=== PATIENT | female | born 1940 | race Caucasian/White ===

== ENCOUNTER 2020-05-14 13:44 | Outpatient (REF) | payer MEDICARE, MEDICAID, OTHER, SELFPAY | END 2020-05-14 13:45 | disposition home or self-care (01) | LOC: HO.HMGCLDS 13:44 | PROVIDERS: PCP Family Medicine; Visit Provider Internal Medicine | DX: Z20.822 Contact with and (suspected) exposure to COVID-19 (principal) | CPT/HCPCS: 36415; C9803; U0003 ==

== ENCOUNTER 2020-07-21 09:56 | Outpatient (REF) | payer MEDICARE, MEDICAID, OTHER, SELFPAY ==
[2020-07-21 11:11] LABS: MANUAL DIFF FLAG NO
[2020-07-21 11:27] LABS: Basophils Percent Auto 0.3 % (0-2); Eosinophils Absolute Auto 0.1 X10*3/uL (0.0-0.4); Eosinophils Percent Auto 2.1 % (0-4); Hematocrit 47.3 % (37-47); Imm Gran Abs Auto 0.03 X10*3/uL (0.00-0.03); Imm Gran Pct Auto 0.5 % (0.0-0.4); Lymphocytes Absolute Auto 1.7 X10*3/uL (1.2-4.9); Lymphocytes Percent Auto 27.3 % (20-40); Mean Corpuscular HGB Conc 31.7 g/dl (31.0-35.0); Mean Corpuscular Hemoglobin 27.5 pg (27.0-33.0); Mean Corpuscular Volume 86.8 fL (80-98); Mean Platelet Volume 9.8 fL (9.4-12.3); Monocytes Absolute Auto 0.5 X10*3/uL (0.1-1.2); Monocytes Percent Auto 7.1 % (2-11); Neutrophils Percent Auto 62.7 % (45-73); Platelet Count 218 X10*3/uL (160-400); Red Blood Count 5.45 X10*6/uL (4.20-5.50); Red Cell Distribution Width 13.8 % (11.0-16.0); White Blood Count 6.3 X10*3/uL (4.8-10.8)
[2020-07-21 12:06] LABS: Alanine Aminotransferase 16 U/L (0-31); Albumin Level 4.2 g/dL (3.5-5.0); Alkaline Phosphatase 91 U/L (39-117); Anion Gap 16 (12-20); Aspartate Amino Transferase 19 U/L (5-31); Bilirubin Total 0.5 mg/dL (0.0-1.0); Blood Urea Nitrogen 16 mg/dL (9-16); Calcium 9.1 mg/dL (8.4-10.2); Carbon Dioxide 29 mmol/L (22-29); Chloride 103 mmol/L (96-108); Estimated Glomerular Filt Rate 53; Glucose Fasting 88 mg/dL (60-99); Sodium 143 mmol/L (135-145); Total Protein 6.6 g/dL (6.5-8.0)
== END 2020-07-21 09:57 | disposition home or self-care (01) ==
LOC: HO.HMGCLDS 09:56
PROVIDERS: PCP Family Medicine; Visit Provider Family Medicine
DX: R53.83 Other fatigue (principal); E03.9 Hypothyroidism, unspecified
CPT/HCPCS: 36415; 80053; 84439; 85025

== ENCOUNTER → 2020-11-29 09:57 | Outpatient (REF) | payer MEDICARE, MEDICAID, OTHER, SELFPAY ==
--- NOTE | 2020-11-29 10:04 | HM_ITS ---
Underlying rhythm is sinus with an average rate of 66/Min. Minimum 46/Min. Maximum 109/Min. Most rates are between 60-100/Min. No evidence of atrial fibrillation or flutter. No AV block. Rare supraventricular ectopy. Longest run 10 beats. [place] 0.09%. Rare ventricular ectopy. [place] 0.12%. Unifocal. No patient events noted. Total monitoring duration 7 days, 4 hours and 1 minutes. MTDD
== END ==
LOC: HO.CARD 09:57
PROVIDERS: PCP Family Medicine; Visit Provider Family Medicine
DX: R00.2 Palpitations (principal)
CPT/HCPCS: 93242

== ENCOUNTER 2021-03-21 10:55 | Outpatient (REF) | payer MEDICARE, OTHER, SELFPAY ==
[2021-03-21 14:41] LABS: Free T4 (Free Thyroxine) 0.78 ng/dL (0.71-1.85); Thyroid Stimulating Hormone 3.43 uIU/mL (0.32-4.0)
[2021-03-21 14:43] LABS: Alanine Aminotransferase 17 U/L (0-31); Aspartate Amino Transferase 18 U/L (5-31)
== END 2021-03-21 10:56 | disposition home or self-care (01) ==
LOC: HO.HMGCLDS 10:55
PROVIDERS: Visit Provider Family Medicine
DX: E78.00 Pure hypercholesterolemia, unspecified (principal); E03.9 Hypothyroidism, unspecified; Z79.899 Other long term (current) drug therapy
CPT/HCPCS: 36415; 82550; 84439; 84443; 84450; 84460

== ENCOUNTER → 2021-03-30 10:16 | Outpatient (REF) | payer MEDICARE, OTHER, SELFPAY ==
--- NOTE | 2021-03-30 10:30 | CA_ITS ---
Transthoracic Echocardiogram Patient (Last, First, Middle): Tiffany Schultz A Gender: Female Date of : 1940 Age: 80 Procedure Date: 03/30/2021 Procedure Type: Transthoracic Echocardiogram Location: OP Height: 154.94 cm Weight: 74.84 kg BSA: 1.74 m2 Heart Rate: bpm BP: 120 / 80 mmHg Adjuster: YR/CP Referring MD: Thomas Ibraihm MD Symptoms: R01.1 CARDIAC MURMUR Study Quality: Fair ECG Rhythm: Sinus Conclusions: - The left ventricular systolic function is normal. The calculated ejection fraction is 65% by biplane method. - There is mild aortic valve stenosis. Cannot exclude bicuspid morphology. Findings Left Ventricle Normal left ventricular cavity size. There is normal left ventricular wall thickness. The left ventricular systolic function is normal. The calculated ejection fraction is 65% by biplane method. There is no evidence of regional wall motion abnormalities. Diastolic function is normal for age. Right Ventricle Normal right ventricular cavity size and systolic function. Atria Both atria are normal in size. Aortic Valve There is mild calcification of the aortic valve. There is mild aortic valve stenosis. The peak aortic velocity is 1.96 m/s with a calculated peak gradient of 15 mmHg. The mean gradient is 8 mmHg. The aortic valve area is 1.67 cm2. There is trace (trivial) aortic valve regurgitation. Dimensionless index 0.49. Cannot exclude bicuspid morphology. Mitral Valve The mitral valve appears normal. There is trace mitral valve regurgitation. There is no mitral valve stenosis. Pulmonic Valve The pulmonic valve was not well visualized. Tricuspid Valve Normal tricuspid valve structure. There is mild tricuspid valve regurgitation. The pulmonary artery systolic pressure is normal. Great Vessels The asc aorta is normal in size. Venous The inferior vena cava is normal in size and collapses greater than 50% with inspiration. Pericardium/Pleural There is no evidence of pericardial effusion. Prior Study Comparison No prior study available for comparison. Measurements 2D Linear Measurements IVSd: 0.82 0.6-0.9/0.6-1.0 cm LVIDd: 4.15 3.9-5.3/4.2-5.9 cm LVIDd Index: 2.39 2.4-3.2/2.2-3.1 cm/m2 LVIDs: 3.10 2.0-3.6 cm LVPWd: 0.89 0.7-1.1 cm Ao Root: 3.20 2.1-3.5 cm LA Diam: 3.20 2.7-3.8/3.0-4.0 cm LAIDs Index: 1.84 1.5-2.3 cm/m2 LV Mass: 135.05 67-162/88-224 g LV Mass Index: 77.62 43-95/49-115 g/m2 LVOT Diam: 1.90 3.0+(-)1.3 cm 2D Systolic Function EF 4C: 62.30 >55% EF 2C: 65.80 >55% EF BiP: 65.30 >55% Mitral Valve MV Pk E: 0.64 MV PK A: 0.83 MV Decel Time: 310.00 E/A: 0.80 E'Lateral: 7.51 E'Medial: 5.22 E/E' Med: 12.30 E/E' Lat: 8.60 PHT: 91.00 MVA PHT: 2.42 Decel [place]: 2.07 Aortic Valve AoV Pk Alfie: 1.96 AoV Mn Alfie: 1.28 AoV VTI: 0.43 AoV Pk Grad: 15.00 Aov Mn Grad: 8.00 IVANA Cont.VTI: 1.67 LVOT LVOT Pk Alfie: 0.95 LVOT Mn Alfie: 0.62 LVOT VTI: 0.25 LVOT Pk Grad: 4.00 LVOT Mn Grad: 2.00 LVOT Diam: 1.90 LVOT Area: 2.84 Diastolic Function MV Pk E: 0.64 MV Pk A: 0.83 E/A: 0.80 E'Medial: 5.22 E/E' Med: 12.30 E' Laterial: 7.51 E/E' Lat: 8.60 Right Ventricle TAPSE (mm): 1.81 TVS' Alfie: 10.10 Tricuspid Valve TR Pk Alfie: 2.16 TR Pk Grad: 19.00 RA Press: 3.00 RVSP: 22.00 Great Vessels Aorta Ao Root-2D: 3.20 2.0-3.7 cm Ao Asc: 3.10 2.1-3.4 cm Ao Arch: 2.30 Updated in Other Vendor System with Status of Final Thad Galvan MD electronically signed on 03/31/2021 11:19:41 AM with status of Final
== END ==
LOC: HO.CARD 10:16
PROVIDERS: Visit Provider Family Medicine
DX: R01.1 Cardiac murmur, unspecified (principal)
CPT/HCPCS: 93306

== ENCOUNTER → 2021-07-26 15:00 | Outpatient (REF) | payer MEDICARE, OTHER, SELFPAY ==
--- NOTE | 2021-07-26 15:09 | ECG_ITS ---
Test Reason : PALPITATIONS Blood Pressure : / mmHG Vent. Rate : 058 BPM Atrial Rate : 058 BPM P-R Int : 146 ms QRS Dur : 066 ms QT Int : 392 ms P-R-T Axes : 042 007 077 degrees QTc Int : 384 ms Sinus bradycardia Nonspecific T wave abnormality Abnormal ECG When compared with ECG of 01-MAY-2014 22:30, No significant change was found Referred By: Thomas Ibrahim Electronically Signed By:STAS CANCINO
== END ==
LOC: HO.CARD 15:00
PROVIDERS: PCP Family Medicine; Visit Provider Family Medicine
DX: R00.2 Palpitations (principal)
CPT/HCPCS: 93005

== ENCOUNTER 2021-09-02 12:25 | Outpatient (REF) | payer MEDICARE, MEDICAID, SELFPAY ==
[2021-09-02 14:01] LABS: Anion Gap 14 (12-20); Aspartate Amino Transferase 20 U/L (5-31); Blood Urea Nitrogen 18 mg/dL (9-16); Carbon Dioxide 29 mmol/L (22-29); Chloride 104 mmol/L (96-108); Estimated Glomerular Filt Rate 55; Potassium 4.5 mmol/L (3.3-5.1); Sodium 142 mmol/L (135-145)
[2021-09-02 14:24] LABS: Free T4 (Free Thyroxine) 0.83 ng/dL (0.71-1.85)
== END 2021-09-02 12:26 | disposition home or self-care (01) ==
LOC: HO.HMGCLDS 12:25
PROVIDERS: Visit Provider Family Medicine
DX: E03.9 Hypothyroidism, unspecified (principal); I10 Essential (primary) hypertension; E78.00 Pure hypercholesterolemia, unspecified; Z79.899 Other long term (current) drug therapy
CPT/HCPCS: 36415; 80051; 82565; 84439; 84450; 84520

== ENCOUNTER 2022-04-06 12:02 | Outpatient (REF) | payer MEDICARE, MEDICAID, SELFPAY ==
[2022-04-06 17:11] LABS: Alanine Aminotransferase 17 U/L (0-31); Aspartate Amino Transferase 17 U/L (5-31); Estimated Glomerular Filt Rate 59; Free T4 (Free Thyroxine) 0.86 ng/dL (0.71-1.85)
== END 2022-04-06 12:03 | disposition home or self-care (01) ==
LOC: HO.HMGCLDS 12:02
PROVIDERS: PCP Family Medicine; Visit Provider Family Medicine
DX: E03.9 Hypothyroidism, unspecified (principal); E78.00 Pure hypercholesterolemia, unspecified; Z79.899 Other long term (current) drug therapy
CPT/HCPCS: 36415; 82550; 82565; 84439; 84450; 84460

== ENCOUNTER 2022-04-19 11:58 | Outpatient (REF) | payer MEDICARE, MEDICAID, SELFPAY ==
--- NOTE | ~2022-04-19 | MM_ITS ---
EXAMINATION: MM SCREENING DIGITAL BREAST TOMOSYNTHESIS, BILATERAL CLINICAL INFORMATION: Screening. Asymptomatic. COMPARISON: Mammography: 03/13/2019, 05/14/2015, 03/12/2014 TECHNIQUE: Digital breast tomosynthesis is performed in both the craniocaudal and mediolateral oblique views along with computer-aided detection (CAD). Synthesized 2D images are generated from the tomosynthesis. FINDINGS: There are scattered areas of fibroglandular density (ACR BI-RADS breast composition Category b). There are no significant masses, abnormal calcifications, or other abnormalities. Breast tissue composition borders on predominantly fatty. Background stromal and fibroglandular densities are similar to prior studies and there is no developing density or architectural abnormality. The axilla and skin contours are unremarkable. MM/MM tomosynthesis screening BI IMPRESSION: No mammographic evidence of malignancy. ASSESSMENT: BI-RADS 1: Negative RECOMMENDATION: Routine annual mammography screening. This patient's information was entered into a reminder system with a target due date for their next mammogram.
== END 2022-04-19 11:59 | disposition home or self-care (01) ==
LOC: HO.MAMMO 11:58
PROVIDERS: PCP Family Medicine; Visit Provider Family Medicine
DX: Z12.31 Encounter for screening mammogram for malignant neoplasm of breast (principal)
CPT/HCPCS: 77063; 77067

== ENCOUNTER 2022-06-21 11:46 | Outpatient (REF) | payer MEDICARE, MEDICAID, SELFPAY ==
[2022-06-21 14:25] LABS: Appearance Urine Cloudy; Color Urine Yellow; Glucose Urine UA Negative (Negative); Leukocyte Esterase Urine Moderate (2+) (Negative); Nitrite Urine Negative (Negative); PH 5.5 (5.0-9.0); UMIC TRIGGER UACC YES; Urine Blood Negative (Negative); Urine Ketones Negative (Negative); Urine Protein Negative (Neg-Trace)
[2022-06-21 14:28] LABS: Bacteria Urine 2+ (None Seen); Hyaline Casts Urine 0-2 /LPF (0-2); RBC Urine 0-2 /HPF (0-2); UACC Culture Trigger YES
[2022-06-21 14:38] LABS: MANUAL DIFF FLAG NO
[2022-06-21 14:50] LABS: Basophils Percent Auto 0.4 % (0-2); Eosinophils Absolute Auto 0.2 X10*3/uL (0.0-0.4); Eosinophils Percent Auto 3.5 % (0-4); Hematocrit 43.7 % (37.0-47.0); Imm Gran Abs Auto 0.02 X10*3/uL (0.00-0.03); Imm Gran Pct Auto 0.4 % (0.0-0.4); Lymphocytes Absolute Auto 1.3 X10*3/uL (1.2-4.9); Lymphocytes Percent Auto 24.4 % (20-40); Mean Corpuscular Hemoglobin 28.2 pg (27.0-33.0); Mean Corpuscular Volume 87.9 fL (80.0-98.0); Mean Platelet Volume 10.3 fL (9.4-12.3); Monocytes Absolute Auto 0.4 X10*3/uL (0.1-1.2); Monocytes Percent Auto 6.8 % (2-11); Neutrophils Absolute Auto 3.5 x10*3/uL (2.0-8.3); Neutrophils Percent Auto 64.5 % (45-73); Platelet Count 191 X10*3/uL (160-400); Red Blood Count 4.97 X10*6/uL (4.20-5.50); Red Cell Distribution Width 13.4 % (11.0-16.0); White Blood Count 5.5 X10*3/uL (4.8-10.8)
[2022-06-21 15:15] LABS: Alanine Aminotransferase 15 U/L (0-31); Albumin Level 3.9 g/dL (3.5-5.0); Alkaline Phosphatase 80 U/L (39-117); Anion Gap 10 (12-20); Aspartate Amino Transferase 16 U/L (5-31); Bilirubin Total 0.5 mg/dL (0.0-1.0); Blood Urea Nitrogen 15 mg/dL (9-16); Calcium 8.9 mg/dL (8.4-10.2); Carbon Dioxide 32 mmol/L (22-29); Chloride 108 mmol/L (96-108); Estimated Glomerular Filt Rate 59; Glucose Random 87 mg/dL (60-115); Potassium 4.8 mmol/L (3.3-5.1); Sodium 145 mmol/L (135-145); Total Protein 6.1 g/dL (6.5-8.0)
[2022-06-21 15:29] LABS: Erythrocyte Sedimentation Rate 3 MM/HR (0-20)
== END 2022-06-21 11:47 | disposition home or self-care (01) ==
LOC: HO.HMGCLDS 11:46
PROVIDERS: PCP Family Medicine; Visit Provider Family Medicine
DX: R30.0 Dysuria (principal); R53.1 Weakness
CPT/HCPCS: 36415; 80053; 81001; 85025; 85652; 87086

== ENCOUNTER 2022-12-27 10:26 | Outpatient (REF) | payer MEDICARE, MEDICAID, SELFPAY ==
[2022-12-27 14:29] LABS: Alanine Aminotransferase 17 U/L (0-31); Albumin Level 3.9 g/dL (3.5-5.0); Alkaline Phosphatase 70 U/L (39-117); Anion Gap 9 (12-20); Aspartate Amino Transferase 17 U/L (5-31); Bilirubin Total 0.5 mg/dL (0.0-1.0); Blood Urea Nitrogen 13 mg/dL (9-16); Calcium 9.4 mg/dL (8.4-10.2); Carbon Dioxide 31 mmol/L (22-29); Chloride 108 mmol/L (96-108); Cholesterol 184 mg/dL (<200); Estimated Glomerular Filt Rate > 60; Glucose Fasting 79 mg/dL (60-99); HDL Cholesterol 46 mg/dL (>40); LDL Cholesterol Calculated 106 mg/dL (<100); Potassium 4.3 mmol/L (3.3-5.1); Sodium 144 mmol/L (135-145); Total Protein 6.3 g/dL (6.5-8.0); Triglycerides 163 mg/dL (<150)
[2022-12-27 14:31] LABS: Free T4 (Free Thyroxine) 0.74 ng/dL (0.71-1.85)
== END 2022-12-27 10:27 | disposition home or self-care (01) ==
LOC: HO.HMGCLDS 10:26
PROVIDERS: PCP Family Medicine; Visit Provider Family Medicine
DX: E78.00 Pure hypercholesterolemia, unspecified (principal); R53.83 Other fatigue; G62.9 Polyneuropathy, unspecified; Z79.899 Other long term (current) drug therapy
CPT/HCPCS: 36415; 80053; 80061; 82550; 84439

== ENCOUNTER 2023-02-07 15:39 | Outpatient (REF) | payer MEDICARE, MEDICAID, SELFPAY ==
--- NOTE | ~2023-02-07 | XR_ITS ---
EXAMINATION: XR CHEST CLINICAL INFORMATION: Cough. COMPARISON: Chest 05/10/2015 TECHNIQUE: 2 views of the chest were obtained. FINDINGS: The lungs are well-expanded and clear. The heart size and pulmonary vascularity is normal. There is mild spondylosis dorsal spine. No aggressive lytic or sclerotic process seen. XR/XR chest 2V IMPRESSION: Unremarkable chest examination.
== END 2023-02-07 15:40 | disposition home or self-care (01) ==
LOC: HO.HMGCX 15:39
PROVIDERS: PCP Family Medicine; Visit Provider Family Medicine
DX: R05.9 Cough, unspecified (principal); R53.81 Other malaise
CPT/HCPCS: 71046

== ENCOUNTER 2023-02-12 14:21 | Outpatient (REF) | payer MEDICARE, MEDICAID, SELFPAY ==
[2023-02-12 16:06] LABS: MANUAL DIFF FLAG NO
[2023-02-12 16:23] LABS: Basophils Percent Auto 0.2 % (0-2); Eosinophils Absolute Auto 0.3 X10*3/uL (0.0-0.4); Eosinophils Percent Auto 3.1 % (0-4); Hematocrit 42.7 % (37.0-47.0); Hemoglobin 13.9 g/dl (12.0-16.0); Imm Gran Abs Auto 0.05 X10*3/uL (0.00-0.03); Imm Gran Pct Auto 0.6 % (0.0-0.4); Lymphocytes Percent Auto 24.4 % (20-40); Mean Corpuscular HGB Conc 32.6 g/dl (31.0-35.0); Mean Corpuscular Hemoglobin 27.6 pg (27.0-33.0); Mean Corpuscular Volume 84.9 fL (80.0-98.0); Mean Platelet Volume 9.7 fL (9.4-12.3); Monocytes Absolute Auto 0.6 X10*3/uL (0.1-1.2); Monocytes Percent Auto 7.8 % (2-11); Neutrophils Absolute Auto 5.2 x10*3/uL (2.0-8.3); Neutrophils Percent Auto 63.9 % (45-73); Platelet Count 223 X10*3/uL (160-400); Red Blood Count 5.03 X10*6/uL (4.20-5.50); Red Cell Distribution Width 13.5 % (11.0-16.0); White Blood Count 8.2 X10*3/uL (4.8-10.8)
== END 2023-02-12 14:22 | disposition home or self-care (01) ==
LOC: HO.HMGCLDS 14:21
PROVIDERS: PCP Family Medicine; Visit Provider Family Medicine
DX: R53.83 Other fatigue (principal)
CPT/HCPCS: 36415; 85025

== ENCOUNTER 2023-10-04 11:50 | Outpatient (REF) | payer MEDICARE, SELFPAY ==
[2023-10-04 13:49] LABS: Alanine Aminotransferase 16 U/L (0-31); Anion Gap 14 (12-20); Aspartate Amino Transferase 20 U/L (5-31); Blood Urea Nitrogen 19 mg/dL (9-16); Carbon Dioxide 30 mmol/L (22-29); Chloride 106 mmol/L (96-108); Estimated Glomerular Filt Rate 53; Sodium 145 mmol/L (135-145)
== END 2023-10-04 11:51 | disposition home or self-care (01) ==
LOC: HO.HMGCLDS 11:50
PROVIDERS: PCP Family Medicine; Visit Provider Family Medicine
DX: Z79.899 Other long term (current) drug therapy (principal)
CPT/HCPCS: 36415; 80051; 82550; 82565; 84450; 84460; 84520

== ENCOUNTER → 2023-10-10 11:00 | Outpatient (BNV) | payer MEDICARE, MEDICAID, SELFPAY | PROVIDERS: PCP Family Medicine; Visit Provider Radiology Diagnostic Radiology | DX: Z12.31 Encounter for screening mammogram for malignant neoplasm of breast (principal) | CPT/HCPCS: 77063; 77067 ==

== ENCOUNTER 2023-10-10 11:02 | Outpatient (REF) | payer MEDICARE, SELFPAY | END 2023-10-10 11:03 | disposition home or self-care (01) | LOC: HO.MAMMO 11:02 | PROVIDERS: PCP Family Medicine; Visit Provider Family Medicine | DX: Z12.31 Encounter for screening mammogram for malignant neoplasm of breast (principal) | CPT/HCPCS: 77063; 77067 ==

== ENCOUNTER 2023-12-24 11:24 | Outpatient (REF) | payer MEDICARE, MEDICAID, SELFPAY ==
[2023-12-24 13:30] LABS: Estimated Average Glucose 108 mg/dL; Hemoglobin A1c % 5.4 % (<6.0)
[2023-12-24 14:03] LABS: Free T4 (Free Thyroxine) 0.82 ng/dL (0.71-1.85)
== END 2023-12-24 11:25 | disposition home or self-care (01) ==
LOC: HO.HMGCLDS 11:24
PROVIDERS: PCP Family Medicine; Visit Provider Family Medicine
DX: R73.09 Other abnormal glucose (principal); E03.9 Hypothyroidism, unspecified
CPT/HCPCS: 36415; 83036; 84439

== ENCOUNTER 2023-12-27 14:11 | Outpatient (REF) | payer MEDICARE, MEDICAID, SELFPAY ==
--- NOTE | ~2023-12-27 | XR_ITS ---
EXAMINATION: XR LUMBOSACRAL SPINE CLINICAL INFORMATION: Right sacroiliitis. COMPARISON: August 08, 2017 TECHNIQUE: Three views of the lumbosacral spine. FINDINGS: No acute lumbar spine fracture is identified. There is disc space narrowing present throughout the lumbar spine with grade 1 spondylolisthesis seen at the L3-L4, L4-L5, and L5-S1 levels. There is facet arthropathy present bilaterally at the L4-L5 and L5-S1 levels and unilaterally on the right at the L3-L4 level. Prominent marginal spurring is present throughout the lower thoracic and lumbar spine. There is some sclerosis seen involving the right sacroiliac joint. No definite effusion or widening identified of the sacroiliac joint. Vascular calcifications seen as well as non-aneurysmal aortic calcified plaque. There has been significant progression in degenerative change since study of August 08, 2017. XR/XR lumbar spine 2-3V IMPRESSION: 1. Diffuse lumbar spondylosis without evidence of acute fracture. 2. Degenerative change of the right sacroiliac joint. 3. Atherosclerotic disease of the aorta. 4. No evidence of sacroiliitis. Electronically signed by: Jorge Moura MD 12/27/2023 06:34 PM EDT
== END 2023-12-27 14:12 | disposition home or self-care (01) ==
LOC: HO.XRAY 14:11
PROVIDERS: PCP Family Medicine; Visit Provider Family Medicine
DX: M46.1 Sacroiliitis, not elsewhere classified (principal)
CPT/HCPCS: 72100

== ENCOUNTER 2024-10-18 09:17 | Outpatient (REF) | payer MEDICARE, SELFPAY ==
[2024-10-18 11:43] LABS: Alanine Aminotransferase 19 U/L (0-31); Aspartate Amino Transferase 20 U/L (5-31); Estimated Glomerular Filt Rate 51
[2024-10-18 11:59] LABS: Free T4 (Free Thyroxine) 0.77 ng/dL (0.71-1.85)
== END 2024-10-18 09:18 | disposition home or self-care (01) ==
LOC: HO.HMGCLDS 09:17
PROVIDERS: PCP Family Medicine; Visit Provider Family Medicine
DX: E03.9 Hypothyroidism, unspecified (principal); E78.00 Pure hypercholesterolemia, unspecified; Z79.899 Other long term (current) drug therapy; R27.0 Ataxia, unspecified
CPT/HCPCS: 36415; 82550; 82565; 84439; 84443; 84450; 84460

== ENCOUNTER 2025-01-14 10:42 | Outpatient (AMB) | payer MEDICARE, SELFPAY ==
--- NOTE | 2025-01-14 10:44 | MHC.PC.OV ---
Vital Signs 01/14/25 10:51 Height 5 ft 1 in Weight 69.4 kg BMI 28.9 BP 122/64 Respiration 16 Pulse 62 Pulse Source Pulse Oximeter Temp 97.8 F Temp Source Temporal Artery Scan Pulse Oximetry (%) 97 Oxygen Delivery Method Room Air Intake Visit Reasons: 3 MO F/UP - MELANI PT Product Support Representative Required: No Accompanied by: Grand Child Allergies No Known Allergies Allergy (Unverified 01/14/25 10:44) Medication List - Last Reconciled 01/14/25 by BOYD Pitt celecoxib 200 mg PO DAILY diaper,brief,adult,disposable small [disposable chux Four times a day] famotidine 40 mg PO QPM gabapentin 300 mg PO BEDTIME levothyroxine 50 mcg PO DAILY pravastatin 40 mg PO BEDTIME sertraline 50 mg PO DAILY Tobacco use date assessed: 01/14/25 Fall risk assessment: 2 + Falls in past year Last assessed Fall Risk: 01/14/25 Dental Screening Dental Screen Date: 01/14/25 Did you have a dental visit in the last 12 months?: Yes Did you have a dental problem in the last 6 months where you did not have access to dental care?: No Was dental information given to patient?: No HPI HPI Comments History of Present Illness Details 84-year-old female with history of vascular dementia, cerebellar ataxia with history of falls, hypothyroidism, hyperlipidemia, peripheral neuropathy, GERD, IBS presenting to the office today for management of chronic conditions and to establish care. Former Dr. Ibrahim patient, last seen September/2024. Hypothyroidism-on levothyroxine 50 mcg daily. Last TSH 5.60 with normal free T4 0.77. Taking medication Hyperlipidemia-on pravastatin 40 mg nightly Cerebellar ataxia/anxiety-on sertraline 50 mg daily, looking to decrease to 25mg. Per prior PCP, question vascular dementia. However MOCA . Reports only occasional forgetfulness. see below regarding gait GERD-famotidine 40 mg nightly Peripheral neuropathy-gabapentin 300 mg nightly which is helpful. Primarily at nighttime OA knees- ANUJA Mejia. On celebrex which does help. Gabapentin is also helpful. Has had several falls, no serious injury. Endorses lower extremity weakness. Able to ambulate about 0.25 miles Aortic stenosis-last echo 2020 showed mild aortic stenosis. No dyspnea, lightheadedness, syncope Concerns: Mobility device- difficulty walking distances ROS: General: No fevers, malaise, unintentional weight loss HEENT: No blurred vision, diplopia. No sore throat, nasal congestion, rhinorrhea, sinus pain, ear pain Cardiovascular: No chest pain, palpitations, or leg edema. IV/ systolic ejection murmur Respiratory: No shortness of breath, wheezing, cough GI: No abdominal pain, nausea, vomiting, diarrhea, constipation, melena, hematochezia : No dysuria, hematuria, increased urinary frequency, decreased urinary output MSK: No myalgia, back pain. see hpi Neuro: No headaches, paresthesias. see hpi Skin: No rashes or lesions EXAM: Constitutional - Awake and Alert, No apparent distress Eyes - PERRL Cardiovascular - S1S2, RRR, No edema Respiratory - Normal lung expansion, Normal respiratory effort, No respiratory distress, CTA bilaterally Extremities - no calf tenderness bilaterally, no swelling MSK - ttp bilateral knees. Slow ambulation with knees slightly flexed Skin - Warm/Dry Neurological - Alert & oriented x3. 4/5 strength ble, gait ataxia MOCA: Visuospatial/executive 5/5 Naming 3/3 Memory no points Attention List of digits 2/2 List of letters 1/1 Serial subtraction 3/3 Language Language repetition 2/2 Language fluency 1/1 Abstraction 2/2 Delayed recall 1/5 Orientation 6/6 Total score 26/30 Psychological-appropriate affect [facility] Medical History (Updated 01/14/25 @ 12:37 by BOYD Pitt) Memory loss Hyperlipidemia GERD (gastroesophageal reflux disease) Irritable bowel syndrome with diarrhea Idiopathic peripheral neuropathy Nonrheumatic aortic (valve) stenosis Hypothyroidism Cerebellar ataxia Social History Housing: Apartment Patient Tobacco Use Status: Former Tobacco user (stopped in s) e-Cigarette/Vaping Use: Never Used service: No Current occupational status: retired Cognitive needs: Yes (Cane) Hearing needs: No Vision needs: Yes (Rx glasses) Questionnaire PHQ-9 Over the last 2 weeks, how often have you been bothered by any of the following problems? 1. Little interest or pleasure in doing things: not at all 2. Feeling down, depressed, or hopeless: not at all Depression Screening Interpretation: Negative Depression Screening Done: Yes Source: Developed by Drs. Gaurav Shah, Car Venegas and colleagues, with an educational leann from [employer]. Thrive Questionnaire Date Thrive assessed: 01/14/25 I am a: Patient What is your living situation today?: I have a steady place to live Within the past 12 months, did the food you bought not last and you didn't have the money to get more?: Never true Within the past 12 months, did you worry whether your food would run out before you got money to buy more?: Never true Do you have trouble paying for medicines?: No Do you have trouble getting transportation to medical appointments?: No Do you have trouble paying your heating and electricity bill?: No Do you have trouble taking care of your child, family member or friend?: No Do you have trouble with day-to-day activities such as bathing, preparing meals, shopping, managing finances, etc.?: No Are you currently unemployed and looking for a job?: No Are you interested in more education?: No Please select the resources that you would like help with: None THRIVE Score: 0 CAROLYN-7 AMB Questionnaire CAROLYN-7 Date CAROLYN - 7 assessed: 01/14/25 Feeling nervous, anxious, or on edge: 0 = Not at all Not being able to stop or control worryin = Not at all Worrying too much about different things: 0 = Not at all Trouble relaxin = Not at all Being so restless that it is hard to sit still: 0 = Not at all Becoming easily annoyed or irritable: 0 = Not at all Feeling afraid as if something awful might happen: 0 = Not at all Total CAROLYN-7 score (0-4 normal; 5-9 mild; 10-14 moderate; 15-21 severe): 0 Source: Developed by Drs. Gaurav Shah, Car Venegas and colleagues, with an educational leann from [employer]. CAROLYN-7 Assessment Billing CAROLYN-7 Assessment Tool: CAROLYN-7 Assessment 50751 Physical exam (Primary Care) Vital Signs: Last Vital Signs Temp 97.8 F 01/14/25 10:51 Pulse 62 01/14/25 10:51 Resp 16 01/14/25 10:51 BP 122/64 01/14/25 10:51 Pulse Ox 97 01/14/25 10:51 Oxygen Delivery Method Room Air 01/14/25 10:51 BMI result Body Mass Index 28.9 Tobacco/Smoking Status: Tobacco use Status Tobacco use date assessed 01/14/25 01/14/25 10:53 Patient Tobacco Use Status Former Tobacco user (stopped 01/14/25 10:53 in 1970's) e-Cigarette/Vaping Use Never Used 01/14/25 10:53 Depression Screening Interpretation: Negative Thrive Assessment: Date of Thrive Assessment Date Thrive assessed 01/14/25 01/14/25 10:54 Coding Level of Care Code New Pt Level 4 (79322) Complex EM visit Add On G2211 Diagnoses Cerebellar ataxia G11.9 Hypothyroidism E03.9 GERD (gastroesophageal reflux disease) K21.9 Hyperlipidemia E78.5 Memory loss R41.3 Nonrheumatic aortic (valve) stenosis I35.0 Additional Codes CAROLYN-7 Assessment Billing - CAROLYN-7 Assessment Tool: CAROLYN-7 Assessment 57928 ([id number]) Assessment & Plan Assessment & Plan (1) Cerebellar ataxia: Code(s): G11.9 - Hereditary ataxia, unspecified Category: Medical Plan: Continue ambulating with cane. However, given ongoing ataxia placing her at significant risk for falls and has a history of recent falls thankfully without injury, scooter as ordered for better mobility and overall safety. Continue with cane for shorter distances (2) Hypothyroidism: Code(s): E03.9 - Hypothyroidism, unspecified Category: Medical Plan: TSH ordered to be performed in 4-6 weeks. Educated on how levothyroxine should be taken. (3) GERD (gastroesophageal reflux disease): Code(s): K21.9 - Gastro-esophageal reflux disease without esophagitis Category: Medical Plan: Stable. Continue avoiding triggering food items, famotidine 40 mg nightly (4) Hyperlipidemia: Code(s): E78.5 - Hyperlipidemia, unspecified Category: Medical Plan: Lipid panel ordered. Continue pravastatin (5) Memory loss: Comment: MOCA Code(s): R41.3 - Other amnesia Category: Medical Plan: MOCA , low suspicion for cognitive impairment. Vasular dementia removed from history. Continue with memory exercises (6) Nonrheumatic aortic (valve) stenosis: Code(s): I35.0 - Nonrheumatic aortic (valve) stenosis Category: Medical Plan: On ausculation, murmur is IV/. has likely has worsened. Echo ordered Plan Follow up in 6 months, labs following visit Orders: Orders Complete Blood Count Auto Diff Today E03.9 - Hypothyroidism, unspecified, E78.5 - Hyperlipidemia, unspecified Lipid Panel Today E03.9 - Hypothyroidism, unspecified, E78.5 - Hyperlipidemia, unspecified CA echo transthoracic complete Today I35.0 - Nonrheumatic aortic (valve) stenosis Basic Metabolic Panel Today E03.9 - Hypothyroidism, unspecified, E78.5 - Hyperlipidemia, unspecified TSH reflex Free T4 Today E03.9 - Hypothyroidism, unspecified, E78.5 - Hyperlipidemia, unspecified Medications: New sertraline 25 mg PO DAILY 90 tabs 1RF [Mobility scooter] Use mobility scooter in place of ambulation for distances greater than 100 yards; 1 units 0RF G11.9 - Hereditary ataxia, unspecified, M17.0 - Bilateral primary osteoarthritis of knee, R29.6 - Repeated falls
[2025-01-14 10:51] VITALS: BP 122/64; PULSE 62; RESP 16; TEMP 36.6; O2SAT 97; BMI 28.9
--- OUTSIDE RECORDS SUMMARY | 2025-01-14 13:30 | XMS_ITS | Clinical Summary ---
Author Organization [employer] Address [address] [place] [address] [address] [place] [address] Care Team Providers Care Coater Hand Name Role Phone Unavailable Primary Care Provider Unavailabl e Allergies No known active allergies Medications No known medications Social History Tobacco Use Types Packs/Day Years Used Date Smoking Tobacco: Never Smokeless Tobacco: Never Tobacco Cessation:Counseling Given: No Alcohol Use Standard Drinks/Week Comments Never 0 (1 standard drink = 0.6 oz pur e alcohol) Comments Unknown Sex and Gender Information Value Date Recorded Sex Assigned at Female 02/27/2022 10:40 AM EDT Legal Sex Female 2:02 PM EST Gender Identity Choose not to disclose 10:40 AM EDT Sexual Orientation Choose not to disclose 2021 10:40 AM EDT Last Filed Vital Signs Vital Sign Reading Time Taken Comments Blood Pressure 118/78 06/06/2022 1:30 PM EST Pulse 67 04/11/2022 10:04 AM EST Temperature - - Respiratory Rate - - Oxygen Saturation - - Inhaled Oxygen Concentration - - Weight - - Height - - Body Mass Index - - Plan of Treatment Health Maintenance Due Date Last Done Comments Dental Oral Exam 1940 Dental Prophylaxis 1940 Dental X-Ray: Bitewings 1940 Dental X-Ray: Full Mouth 1940 Depression Screening 1940 SDOH Screening 1940 Alcohol/Substance Use Screening 1950 DTaP/Tdap/Td Vaccines (1 - Tdap) 1957 Pneumococcal Vaccine: 50+ Ye ars (1 of 1 - PCV) 1988 Zoster Vaccines (1 of 2) 1988 RSV Patients and Pa tients Aged 60 years or older (1 - 1-dose 75+ series) 2013 Tobacco Screening 06/06/2023 06/06/2022 COVID-19 Vaccine ( - 2023-2 5 season) 2024 Influenza Vaccine (#1) 2024 HIB Vaccines Aged Out No longer eligi ble based on patient's age to complete this topic HPV Vaccines Aged Out No longer eligi ble based on patient's age to complete this topic Hepatitis A Vaccines Aged Out No long er eligible based on patient's age to complete this topic Hepatitis B Vaccines Aged Out No long er eligible based on patient's age to complete this topic IPV Vaccines Aged Out No longer eligi ble based on patient's age to complete this topic Meningococcal B Vaccine Aged Out No l onger eligible based on patient's age to complete this topic Meningococcal Vaccine Aged Out No kacey willy eligible based on patient's age to complete this topic RSV under 20 months Aged Out No longe r eligible based on patient's age to complete this topic Rotavirus Vaccines Aged Out No longer eligible based on patient's age to complete this topic Insurance DENTAL - HSN FULL (MEDICAID) DENTAL - HSN FULL (MEDICAID)
--- OUTSIDE RECORDS SUMMARY | 2025-01-14 13:30 | XMS_ITS | Patient Health Record ---
Author Organization [facility] Address [address] [place] [address] Care Team Providers Care Outside Operator Name Role Phone Patrice (RETIRED) Thomas MEYER Primary Care Provider Unavailable Gaurav Lai Unavailable [phone] Amber Bartlett MD Unavailable Unavailable Reason For Referral No Information Medications Medication SIG (Take, Route, Frequency, Duration) Notes Start Date End Date Status Ibuprofen 200 MG 1 tablet as needed O rally prn Active Chlorzoxazone 500 MG 1 tablet Orally prn Active Sertraline HCl 25 MG 1 tablet Orally Once a day Active Pravastatin Sodium 40 MG 1 tablet Orally Once a day Active Famotidine 40 MG 1 tablet Orally Once a day Active Immunizations Vaccine Route Administration Date Status Comme nts Flu vaccine no Preserv 3 and > Unknown 02/16/2015 Admin istered Problems Problem Type SNOMED Code ICD Code Onset Dates Problem Status W/U Status Risk Notes Problem [id number] Choledocholithia sis (K80.50) Active confirmed Plan Of Treatment Future Test Test Name Order Date ERCP REMOVAL OF STONES 06/30/2015 Insurance Providers Payer Name Payer Address Payer Phone Subscriber Number Group Number Insured Name Patient Relationship to Insured Coverage Start Date Coverage End Date MEDICARE OF [employer] [address] [place] [id number] JORDYN MONTGOMERY Self - patient is the insured Medical (General) History Medical History History ICD Code Denies AL,DM,CVA,Lung disease,renal dise ase Hyperlipidemia Depression in relation to the loss of he r son Cholelithiasis and presumed choledocholithiasis on her ultrasound and MRCP, respectively--she is scheduled for cholecystectomy on July [address] Bartlett
== END 2025-01-14 11:29 | disposition home or self-care (01) ==
LOC: HO.HMCHD 10:42
PROVIDERS: PCP Family Medicine; Visit Provider Physician Assistant
DX: G11.9 Hereditary ataxia, unspecified (principal); E03.9 Hypothyroidism, unspecified; K21.9 Gastro-esophageal reflux disease without esophagitis; E78.5 Hyperlipidemia, unspecified; R41.3 Other amnesia; I35.0 Nonrheumatic aortic (valve) stenosis

== ENCOUNTER → 2025-01-14 10:42 | Outpatient (BNVA) | payer MEDICARE, SELFPAY | PROVIDERS: PCP Family Medicine; Visit Provider Physician Assistant | DX: G11.9 Hereditary ataxia, unspecified (principal); E03.9 Hypothyroidism, unspecified; K21.9 Gastro-esophageal reflux disease without esophagitis; E78.5 Hyperlipidemia, unspecified; R41.3 Other amnesia; I35.0 Nonrheumatic aortic (valve) stenosis; M17.0 Bilateral primary osteoarthritis of knee; Z79.899 Other long term (current) drug therapy; Z13.39 Encounter for screening examination for other mental health and behavioral disorders | CPT/HCPCS: 96127; 99202 ==

== ENCOUNTER 2025-02-06 12:11 | Outpatient (REF) | payer MEDICARE, SELFPAY ==
[2025-02-06 16:29] LABS: MANUAL DIFF FLAG NO
[2025-02-06 16:40] LABS: Hematocrit 45.0 % (37.0-47.0); Hemoglobin 14.4 g/dl (12.0-16.0); Imm Gran Abs Auto 0.02 X10*3/uL (0.00-0.03); Imm Gran Pct Auto 0.3 % (0.0-0.4); Lymphocytes Absolute Auto 1.7 X10*3/uL (1.2-4.9); Mean Corpuscular HGB Conc 32.0 g/dl (31.0-35.0); Mean Corpuscular Hemoglobin 27.5 pg (27.0-33.0); Mean Corpuscular Volume 85.9 fL (80.0-98.0); NRBC Abs Auto 0.000 X10*3/uL (0.0-0.012); NRBC Pct Auto 0.0 /100WBC (0.0-0.2); Platelet Count 187 X10*3/uL (160-400); Red Blood Count 5.24 X10*6/uL (4.20-5.50); White Blood Count 6.6 X10*3/uL (4.8-10.8)
[2025-02-06 17:35] LABS: Anion Gap 12 (12-20); Blood Urea Nitrogen 12 mg/dL (9-16); Calcium 9.3 mg/dL (8.4-10.2); Carbon Dioxide 29 mmol/L (22-29); Chloride 108 mmol/L (96-108); Cholesterol 164 mg/dL (<200); Estimated Glomerular Filt Rate > 60; HDL Cholesterol 48 mg/dL (>40); Potassium 4.4 mmol/L (3.3-5.1); Sodium 145 mmol/L (135-145); Triglycerides 171 mg/dL (<150)
== END 2025-02-06 12:12 | disposition home or self-care (01) ==
LOC: HO.HMGCLDS 12:11
PROVIDERS: PCP Physician Assistant; Visit Provider Physician Assistant
DX: E03.9 Hypothyroidism, unspecified (principal); E78.5 Hyperlipidemia, unspecified
CPT/HCPCS: 36415; 80048; 80061; 84443; 85025

== ENCOUNTER 2025-02-12 14:30 | Outpatient (REF) | payer MEDICARE, SELFPAY ==
--- NOTE | ~2025-02-12 | XR_ITS ---
EXAMINATION: XR SHOULDER, LEFT CLINICAL INFORMATION: M25.512 - Pain in left shoulder COMPARISON: None available. TECHNIQUE: Three views of the left shoulder. FINDINGS: Normal bone mineralization. No fracture, dislocation, or suspicious bone lesion. Normal alignment. The glenohumeral joint demonstrates mild to moderate degenerative arthrosis. The AC joint demonstrates mild to moderate degenerative spurring. There is a type III acromion. No undersurface spurring. The subacromial space is mildly narrowed. Remainder of the soft tissue and bony structures appear normal. XR/XR shoulder LT min 2V IMPRESSION: 1. No acute bony or soft tissue abnormalities. 2. Mild to moderate degenerative arthrosis of the glenohumeral joint and AC joint. Electronically signed by: Epi Koenig MD 02/12/2025 03:27 PM EDT
--- OUTSIDE RECORDS SUMMARY | 2025-02-12 18:57 | XMS_ITS | Data Portability ---
Author Organization [facility], [id number] [address] [place] [address] Assessment No assessment recorded. Plan of Treatment Reminders Order Date Submit Date Provider Last Modified By Organization Details Last Modified Time Details Appointments None recorded. Lab None recorded. Referral None recorded. Procedures None recorded. Surgeries None recorded. Imaging None recorded. Medication Orders diclofenac 1 % topical gel 2022 023 [facility] [place], [address], 09:37:29 Patient TargetsNo targets recorded. Patient Instructions Encounter Date Encounter Id Patient Instructions Last Modified By Organization Details Last Modified Time 04/01/2023 [id number] knee pain or injury: care instructions Not available 04/01/2023 09:37:17 arthritis: care instructions Not available 04/01/2023 09:37:47 RICE treatment a s it applies to your injury: Rest the injury, heat w/ barrier 15 min at a time up to 4 times daily. . Tylenol and Ibuprofen OTC for pain (if not contraindicated,) take only one NSAID type pain medication at a time with food as discussed. Avoid high impact activities until your symptoms resolve. ER precautions for pain that is much worse, severe or out of control. Follow-up with your PCP, or clinic in 1 week or earlier if worsening or not improving as expected. Not available 04/01/2023 09:38:17 if worsening or not improving please go to the ED immediately Not available 04/01/2023 09:37:51 Reason for Referral None Reported. Procedures Surgical History Date Name Laterality Status Provider Name and Address Organization Details Recorded Time cholecystectomy completed CHRISTOPHE ANASTASIADIS PA - [facility] 04/01/2023 09:23:46 Imaging Results None recorded. Procedure Notes None recorded. Medical Equipment None Reported. Allergies Allergen ID Allergen Name Allergen Category Reaction Reaction Severity Criticality Documentation Date Start Date Code Code System Note Provider Name and Address Organization Details Recorded Time [id number] chlorzoxa zone medicatio n nausea Not available Not available 04/01/2023 2410 RxNorm CHRISTOPHE MELVA DIS null, PA - [facility] 3 09:20:31 [id number] morphine medicatio n other Not available Not available 04/01/2023 7052 RxNorm CHRISTOPHE MELVA DIS null, PA - [facility] 3 09:20:49 [id number] pravastat in medicatio n myalgias (muscle pain) Not available Not available 04/01/2023 21334 RxNorm CHRISTOPHE MELVA DIS null, PA - [facility] 3 09:21:09 Medications Name Sig Start Date Stop Date Status Note LastModified by Organization Details LastModified Time pravastatin 40 mg tablet TAKE 1 TABLET BY MOUTH EVERY DAY AT BEDTIME DIRECTED 04/01 completed Not Available Not Available Not Available meloxicam 15 mg tablet TAKE 1 TABLET BY MOUTH ONCE A DAY FOR 2 WEEKS active Not Available Not Available No t Available famotidine 40 mg tablet TAKE 1 TABLET BY MOUTH ONCE A DAY DIRECTED BEFORE DINNER active Not Available Not Available No t Available prednisone 20 mg tablet 04/01 completed Not Available Not Available Not Available acyclovir 800 mg tablet 04/01 completed Not Available Not Available Not Available levothyroxi ne 50 mcg tablet TAKE 1 TABLET BY MOUTH EVERY DAY active Not Available Not Available No t Available sertraline 25 mg tablet TAKE 1 TABLET BY MOUTH ONCE A DAY WITH THE 50MG FOR A TOTAL DOSE OF 75MG active Not Available Not Available No t Available sertraline 50 mg tablet TAKE 1 TABLET BY MOUTH EVERY DAY ALONG WITH THE 25MG FOR A TOTAL DOSE OF 75MG active Not Available Not Available No t Available amoxicillin 875 mg-potassiu m clavulanate 125 mg tablet 04/01 completed Not Available Not Available Not Available diclofenac 1 % topical gel APPLY 2 GRAMS TOPICALLY TO AFFECTED AREA 4 TIMES DAILY active Not Available Not Available No t Available Vitals Date Recorded Body height Body mass index (BMI) Body weight Oxygen saturation Oxygen saturation in Arterial blood by Pulse oximetry Pain severity - 0-10 verbal numeric rating [Score] - Reported Heart rate Respiratory rate Systolic And Diastolic Provider Name and Address Organization Details Last Updated DateTime 3 157.48 cm 28.3 kg/m2 21697.8 2 g 98 % 98 % 5 73 /min 16 /min 130/85 mm[Hg] CHRISTOPHE MELVA PEACOCK PA - [facility] 3 09:17:07 Social History Question Answer Notes LastModified by Flight Steward Details LastModified Time Tobacco Smoking Status Never Smoker CHRISTOPHE GUNNER iglesias, PA - [facility] 04/01/2023 09:05:55 Have You Had Direct Contact, Or Contact During Intimacy, With Monkeypox Rash, Scabs, Or Body Fluids From A Person With Monkeypox? No Information not available 04/01/2023 Have You Recently Traveled Abroad? No Information not available 04/01/2023 Sex: Unknown Functional Status Question Answer Note LastModified by Flight Steward Details LastModified Time Do you use any illicit or recreational drugs? No Information not available 04/01/2023 What is your level of alcohol consumption? None Information not available 04/01/2023 Mental Status None recorded. Family History Nothing Reported. Medical History Condition Response Gout N Cancer, liver N Thyroid disorder N Hyperthyroidism N Rheumatoid arthritis N GI bleeding N Irritable bowel syndrome N COPD N Depression Y Tinnitus, unspecified ear N Pneumonia N Cancer, uterus N Mental disorder, NOS N Headaches/Migraines N Insomia N Alzheimer's disease N Anxiety Disorder N Obesity N Arthritis N Cancer N Stroke N Alcohol abuse N Liver disease N Allergy Food/Medication N Cancer, bladder N Peripheral artery disease N Oxygen dependence N Fibromyalgia N Atrial fibrillation N Tinnitus, right ear N Kidney Disease N Deep vein thrombosis DVT leg N Migraine N Disorder of circulatory system N Anxiety N Cancer, brain N Disease of pancreas N Cancer, lung N Eating disorder, unspecified N Cancer, colon N Crohn's disease N Cancer, cervical N N Cancer, breast N Cancer, skin N Coagulation defect, unspecified N Cataract N Asthma N Congestive heart failure (CHF) N Substance Abuse N Vertigo N Coronary artery disease N Pulmonary Embolism N Cancer, pancreas N Tobacco use disorder N Disease of lung N Allergic rhinitis N Joint disorder, unspecified N Menopause N Back disorder Y Drug dependence, unspecified N Hypothyroidism N Disorder kidney N Sickle Cell Anemia N Cancer, ovarian N Zapata's Palsy N Disorder of eye N Cancer, prostate N Allergy Seasonal N Disorder of lymph system N Disorder of urinary system N Drug abuse N Radiculopathy, site unspecified N Myoneural disorder, unspecified N Nervous system disorder N ADHD N High Cholesterol Y Post-herpetic neuralgia N Aneurysm, cerebral N Tinnitus, left ear N Prostate hypertrophy, benign N Disorder of skin/subcutaneous N Osteoarthritis Y Disorder of ear N Ovarian cysts N Parkinson's disease N Low back pain N Carpal tunnel syndrome N Anemia N Disorder of muscle N Kidney stone N Bipolar affective disorder N Leukemia, unspecified N Diabetes N Disorder involving the immune mechanism N Endocrine disorder N Seizure N Hyperlipidemia N Eczema N Emphysema, unspecified N Lymphoma N Dementia N Diverticulitis N Lupus N Seizure disorder N Reflux/GERD N Sleep Apnea N Cancer, bone N Cardiac arrhythmia, unspecified N Disorder of thyroid N Disorder of bone Y Heart Disease N Disorder of brain N Liver Disorder N Aneurysm, aortic N Hypertension N Osteoporosis N Disease of digestive system, unspecified N Gastroesophageal reflux (GERD) Y Gynecological History Statement/Question Response Is there any chance of ? No LMP N/A Obstetrics History GPAL:G 0 P 0 0 0 0 Past Encounters Encounter ID Performer Location Encounter Start Date Encounter Closed Date Diagnosis/Indication Diagnosis SNOMED-CT Code Diagnosis ICD10 Code Diagnosis IMO Codes Diagnosis Note [id number] [place] [address] [address] [facility] 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 Health Concerns Section Related Observation LastModified by Organization Detai ls LastModified Time None Recorded Concern Status LastModified by Organization Details LastModified Time None Recorded Advance Directives Directive None Recorded Payers Insurance Date Sequence Insurance Name Policy Number Policy Silva Covered Member ID Silva Member ID Guarantor Name 04/01/2023 1 [place] Tiffany Shahan [id number] Tiffany Marion 05/19/2023 2 [place] [facility] Tiffany Schultz Notes Date Note Type Note Provider Name and Address Organization Details Recorded Time 04/01/2023 text/html KneeReported by Patient Rt knee swelling and pain ongoing for several years. Pt receives regular cortizone injections. Pt would like prescription for compression stockings. denies trauma, calf pain BETSEY KRISHNAMURTHY NP [address] [place], [address], [place] - [facility] 05/02/2023 18:05:19 OBGyn Episode No OBEpisode recorded.
--- OUTSIDE RECORDS SUMMARY | 2025-02-12 18:57 | XMS_ITS | Clinical Summary ---
Author Organization [employer] Address [address] [place] [address] [address] [place] [address] Care Team Providers Care Tobacco Sizer Name Role Phone Unavailable Primary Care Provider [...]
== END 2025-02-12 14:31 | disposition home or self-care (01) ==
LOC: HO.HMGCX 14:30
PROVIDERS: PCP Physician Assistant; Visit Provider Nurse Practitioner Family
DX: M25.512 Pain in left shoulder (principal); Z79.899 Other long term (current) drug therapy
CPT/HCPCS: 73030; 99212

== ENCOUNTER 2025-02-12 14:30 | Outpatient (AMB) | payer MEDICARE, SELFPAY ==
[2025-02-12 14:37] VITALS: BP 136/70; PULSE 70; TEMP 37.1; O2SAT 97; BMI 28.2
--- NOTE | 2025-02-12 14:37 | MHC.OFFWIV ---
Intake Vital Signs 02/12/25 14:37 Height 5 ft 1 in Weight 149 lb BMI 28.2 BP 136/70 Blood Pressure Location Lt brachial Position Sitting Pulse 70 Pulse Source Pulse Oximeter Temp 98.7 F Temp Source Oral Pulse Oximetry (%) 97 Oxygen Delivery Method Room Air Intake Visit Reasons: EP Dislocated lt shoulder? Intake Note: Patient presents for left shoulder pain due to storm door slamming down on shoulder x3 weeks ago Patient Tobacco Use Status: Former Tobacco user (stopped in ) Allergies No Known Allergies Allergy (Verified 02/12/25 14:44) Medication List - Last Reconciled 02/12/25 by Krystal Dias NP acetaminophen 1,000 mg (2 x 500 mg) PO Q6H PRN celecoxib 200 mg PO DAILY PRN cyclobenzaprine 5 mg PO BEDTIME diaper,brief,adult,disposable small [disposable chux Four times a day] famotidine 40 mg PO QPM gabapentin 300 mg PO BEDTIME levothyroxine 50 mcg PO DAILY [Mobility scooter Use mobility scooter in place of ambulation for distances greater than 100 yards; ] pravastatin 40 mg PO BEDTIME sertraline 25 mg PO DAILY Do you need a note to return to daycare/school/sports/work: No HPI HPI Comments History of Present Illness Details 84 y/o Female patient who presents to the walk in clinic with c/o Left shoulder pain. Pt reports that about 3 weeks ago, she injured her Left shoulder. She was trying to stop the Storm Door, when it came swinging and hit her left shoulder. Reports limited ROM of Shoulder due to pain. Denies numbness or tingling. [facility] Medical History (Updated 02/12/25 @ 17:01 by Krystal Dias NP) Left shoulder pain Memory loss Hyperlipidemia GERD (gastroesophageal reflux disease) Irritable bowel syndrome with diarrhea Idiopathic peripheral neuropathy Nonrheumatic aortic (valve) stenosis Hypothyroidism Cerebellar ataxia Social History Housing: Apartment Patient Tobacco Use Status: Former Tobacco user (stopped in ) e-Cigarette/Vaping Use: Never Used service: No Current occupational status: retired Cognitive needs: Yes (Cane) Hearing needs: No Vision needs: Yes (Rx glasses) Review of Systems Const All systems reviewed & are unremarkable except as noted in HPI and below Physical Exam Vital Signs: Last Vital Signs Temp 98.7 F 02/12/25 14:37 Pulse 70 02/12/25 14:37 BP 136/70 02/12/25 14:37 Pulse Ox 97 02/12/25 14:37 Oxygen Delivery Method Room Air 02/12/25 14:37 BMI result Body Mass Index 28.2 Const General: no acute distress Nutritional Appearance: overweight Orientation/consciousness: patient oriented x3 Limitations: ambulation with cane Neuro General: patient oriented x3, gait normal and moves all extremities Extrem Right upper extremity: normal to inspection and full ROM Left upper extremity: normal capillary refill and shoulder/upper arm Details: tenderness Location: of the A-C joint and over the deltoid bursa and abnormal ROM Details: pain with active ROM and pain with passive ROM; no swelling, no ecchymosis, no crepitus, no deformity and no unsual warmth Psych Speech and movement: Normal speech and movement present Assessment & Plan Assessment & Plan (1) Left shoulder pain: Code(s): M25.512 - Pain in left shoulder Qualifiers: Chronicity: acute Qualified Code(s): M25.512 - Pain in left shoulder Plan: DDx's: Sprain vs Strain shoulder muscle vs Contusion. Ordered Xray Shoulder to r/o Fx or Dislocation. Ordered Acetaminophen and NSAIDs for pain relief. Rest joint, apply Ice/Heat. Orders: Orders XR shoulder LT min 2V Today M25.512 - Pain in left shoulder Medications: New acetaminophen 1,000 mg (2 x 500 mg) PO Q6H PRN 30 caps 0RF pain M25.512 - Pain in left shoulder cyclobenzaprine 5 mg PO BEDTIME 10 tabs 0RF M25.512 - Pain in left shoulder celecoxib 200 mg PO DAILY PRN 20 caps 0RF pain M25.512 - Pain in left shoulder Coding Level of Care Code Est Pt Level 4 (94274) Diagnoses Acute pain of left shoulder M25.512 Chronicity: acute Time Spent (min) 20
--- OUTSIDE RECORDS SUMMARY | 2025-02-12 18:21 | XMS_ITS | Patient Health Record ---
Author Organization [facility] Address [address] [place] [address] Care Team Providers Care Rubber Tester Name Role Phone Patrice (RETIRED) Thomas MEYER Primary Care Provider Unavailable Gaurav Lai Unavailable [phone] Amber Bartlett MD Unavailable Unavailable Reason For [...] Problem Status W/U Status Risk Notes Problem Common bile duct calculus (582936854) Choledocholithiasis (K80.50) Active confirmed Plan Of Treatment Future Test Test Name Order Date ERCP REMOVAL OF STONES 06/30/2015 Insurance Providers Payer Name Payer Address Payer Phone Subscriber Number Group Number Insured Name Patient Relationship to Insured Coverage Start Date Coverage End Date MEDICARE OF [place] 71Sona [place] [id number] JORDYN MONTGOMERY Self - patient is the insured Medical (General) History Medical History History ICD Code Denies [place],DM,CVA,Lung disease,renal dise ase Hyperlipidemia Depression in relation to the loss of he r son Cholelithiasis and presumed choledocholithiasis on her ultrasound and MRCP, respectively--she is scheduled for cholecystectomy on July [address] Bartlett
== END 2025-02-12 15:20 | disposition home or self-care (01) ==
PROVIDERS: PCP Physician Assistant; Visit Provider Nurse Practitioner Family
DX: M25.512 Pain in left shoulder (principal)

== ENCOUNTER → 2025-02-12 15:07 | Outpatient (BNV) | payer MEDICARE, SELFPAY | PROVIDERS: PCP Physician Assistant; Visit Provider Radiology Diagnostic Radiology | DX: M19.012 Primary osteoarthritis, left shoulder (principal) | CPT/HCPCS: 73030 ==